=== PATIENT | male | born 1960 | race American Indian/Alaskan Native ===

== ENCOUNTER 2018-10-07 12:05 | Observation (INO) | payer OTHER ==
--- NOTE | 2018-10-07 14:19 | ED PDOC ---
Syncope/Near Syncope/Dizziness Time Seen by Provider: 10/07/18 12:57 Chief Complaint (Nursing): Dizziness/Lightheaded Chief Complaint (Provider): dizziness History Per: Patient History/Exam Limitations: no limitations Onset/Duration Of Symptoms: Days Associated Symptoms Preceding Syncopal Episode: Lightheadedness. denies: Vertigo Possible Causative Factor(s): Lightheaded W/Change In Head Position, Decreased PO Intake. denies: Vertigo, Diurectics, New Medications, Recent Alcohol Fall Associated With With Symptoms: No Additional Complaint(s): 58 y/o M with HIV and hx of DVT in 12/2017 on Eliquis who presents with lightheadedness since yesterday. Began after bending forward but had intermittent episodes throughout the day that he felt were related to not eating. He had recurrent episode today but had not eaten breakfast and felt slightly better but wanted to be evaluated to make sure that nothing was very wr mary. Denies visual disturbance, N/V, diarrhea, C/P, palpitations, SOB, vertigo. Denies change in dizziness with head position. - Risk Factors PE Risk Factors: Pos: Previous DVT Past Medical History Reviewed: Historical Data, Nursing Documentation, Vital Signs Vital Signs: Last Vital Signs Temp 98.1 F 10/07/18 12:15 Pulse 60 10/07/18 12:15 Resp 18 10/07/18 12:15 BP 142/80 10/07/18 12:15 Pulse Ox 99 10/07/18 12:15 - Medical History PMH: Deep Vein Thrombosis, HIV, Pneumonia (remote) Denies: HTN, Chronic Kidney Disease - Family History Family History: States: Unknown Family Hx - Social History Current smoker - smoking cessation education provided: No Ex-Smoker (has not smoked in the last 12 months): No Alcohol: None Drugs: Denies - Immunization History Hx Tetanus Toxoid Vaccination: No Hx Influenza Vaccination: No Hx Pneumococcal Vaccination: No - Home Medications Home Medications: Ambulatory Orders Medication Instructions Recorded Emtricita/rilpivir/tenofovir 1 tab PO DAILY 10/11/14 [Complera 200 mg-25 mg-300 mg] Apixaban [Eliquis] 5 mg PO Q12 10/07/18 - Allergies Allergies/Adverse Reactions: Allergies Allergy/AdvReac Type Severity Reaction Status Date / Time No Known Allergies Allergy Verified 10/07/18 12:15 Review of Systems Constitutional: Negative for: Fever, Chills, Weakness Cardiovascular: Negative for: Chest Pain Respiratory: Negative for: Shortness of Breath Gastrointestinal: Negative for: Nausea, Vomiting, Diarrhea Genitourinary Male: Negative for: Dysuria Neurological: Negative for: Weakness, Incoordination, Confusion, Headache Physical Exam - Reviewed Nursing Documentation Reviewed: Yes Vital Signs Reviewed: Yes - Physical Exam Appears: Positive for: Well Head Exam: Positive for: ATRAUMATIC Skin: Positive for: Normal Color Eye Exam: Positive for: Normal appearance ENT: Positive for: Normal ENT Inspection Neck: Positive for: Normal Cardiovascular/Chest: Positive for: Regular Rate, Rhythm Respiratory: Positive for: Normal Breath Sounds Gastrointestinal/Abdominal: Positive for: Normal Exam Neurologic/Psych: Positive for: Alert, Oriented. Negative for: Motor/Sensory Deficits - Laboratory Results Result Diagrams: 10/07/18 13:50 10/07/18 13:50 - ECG O2 Sat by Pulse Oximetry: 99 Medical Decision Making Medical Decision Making: CBC, CMP Head CT w/o contrast Orthostatics EKG EKG: sinus mercy, HR 40s, no evidence of heart block Orthostatics negative Head CT negative for acute abnormality Telemetry monitoring ordered. 1L Fluid bolus ordered. Admit to Hospitalist Dr. Elder for Observation on telemetry given persistent bradycardia on telemetry. Disposition - Clinical Impression Clinical Impression: Bradycardia, Dizziness - Patient ED Disposition Is Patient to be Admitted: Yes Discussed With DrDianelys: Kylah Elder Doctor Will See Patient In The: ED Counseled Patient/Family Regarding: Studies Performed, Diagnosis, Need For Followup - Disposition Disposition: Transfer of Care Disposition Time: 17:12 Condition: FAIR
[2018-10-07 14:21] LABS: BASO % 1.1 % (0.0-2.0); EOS # 0.1 K/uL (0.0-0.7); EOS % 2.7 % (0.0-4.0); HEMOGLOBIN 15.6 g/dL (12.0-18.0); LYMPH # 1.7 K/uL (1.0-4.3); MEAN CELL VOLUME 89.8 fl (80.0-94.0); MEAN CORPUSCULAR HEMOGLOBIN 29.1 pg (27.0-31.0); MEAN CORPUSCULAR HGB CONC 32.4 g/dL (33.0-37.0); MEAN PLATELET VOLUME 7.9 fl (7.2-11.7); MONO # 0.3 K/uL (0.0-0.8); MONO % 6.3 % (0.0-10.0); NEUT # 2.3 K/uL (1.8-7.0); NEUT % 50.9 % (50.0-75.0); NRBC % 0.2 % (0.0-0.0); RBC 5.35 Mil/uL (4.40-5.90); RED CELL DISTRIBUTION WIDTH 14.4 % (11.5-14.5); WHITE BLOOD COUNT 4.5 K/uL (4.8-10.8)
--- NOTE | 2018-10-07 14:44 | CT ---
Date of service: 10/07/2018 PROCEDURE: CT HEAD WITHOUT CONTRAST. HISTORY: acute dizziness COMPARISON: Not available TECHNIQUE: Axial computed tomography images were obtained through the head/brain without intravenous contrast. Radiation dose: Total exam DLP = 904.88 mGy-cm. This CT exam was performed using one or more of the following dose reduction techniques: Automated exposure control, adjustment of the mA and/or kV according to patient size, and/or use of iterative reconstruction technique. FINDINGS: HEMORRHAGE: No intracranial hemorrhage. BRAIN: No mass effect or edema. No atrophy. Minimal white matter lucency adjacent to the frontal horns of the lateral ventricles consistent with chronic microvascular ischemic change. No evidence of acute infarct. Please note that there is coarse calcification along the anterior aspect of the falx cerebrum which may merely represent calcification though the possibility of meningioma should also be considered. VENTRICLES: Unremarkable. No hydrocephalus. CALVARIUM: Unremarkable. PARANASAL SINUSES: Unremarkable as visualized. No significant inflammatory changes. MASTOID AIR CELLS: Unremarkable as visualized. No inflammatory changes. OTHER FINDINGS: None. IMPRESSION: No intracranial mass, hemorrhage or evidence of acute infarct. Calcification along the anterior falx cerebrum could conceivably represent a meningioma the though this is in no a certain on the basis of this examination. Minimal chronic white matter ischemic change. No additional abnormality.
[2018-10-07 14:45] LABS: BLOOD UREA NITROGEN 16 mg/dl (9-20); GFR NON-AFRICAN AMERICAN > 60
[2018-10-07 14:46] LABS: ALB/GLOB RATIO 1.3 (1.0-2.1); ALBUMIN 4.4 g/dL (3.5-5.0); ALT/SGPT 31 U/L (21-72); AST/SGOT 32 U/L (17-59); CALCIUM 9.4 mg/dL (8.4-10.2)
[2018-10-07 15:32] LABS: INR 1.1; PARTIAL THROMBOPLASTIN TIME 33.6 Seconds (25.6-37.1); PROTHROMBIN TIME 12.9 Seconds (9.8-13.1)
[2018-10-07] MEDS ORDERED: Sodium Chloride 0.9% 1,000 ML IV STA (15:57)
[2018-10-07 18:38] LABS: BARBITURATES, UR NEGATIVE (NEGATIVE); BENZODIAZEPINES, UR NEGATIVE (NEGATIVE); OPIATES, UR NEGATIVE (NEGATIVE); PHENCYCLIDINE, UR NEGATIVE (NEGATIVE)
--- NOTE | 2018-10-07 19:46 | CP.PCM.HP ---
<Sultan Gumaro - Last Filed: 10/07/18 21:36> History of Present Illness - History of Present Illness History of Present Illness: CC: dizziness HPI: 58 year old male PMHx of HIV (CD 4 count 714 on 11/2017), DVT and PE in 04/2018 presents to [facility] ED with complaints of intermittent lightheadedness and dizziness since yesterday. Patient reports intermittent dizziness throughout the day w/o any associated symptoms and attributing it to not eating on time. Reports lightheadedness resolves after eating food. Denies any current dizziness at the time of the exam. Denies any headache, blurry vision, nausea, vomiting, chest pain, dyspnea or LOC. In the ED, patient was found to bradycardic in 40s. Denies any hx cardiac issues in the past. [facility]: Dr. Chatman PMHx: HIV, DVT, and PE PSHx: Right inguinal hernia repair in 2007 Social hx: Drinks wine on weekends. Denies smoking cigarettes or using illicit drugs Family Hx: Mother from tumor of head 2 brothers: from [place] at age 50s Allergies: NKDA Home Medication: Complera 1 tab PO daily, Eliquis 5 mg po bid Present on Admission - Present on Admission Any Indicators Present on Admission: Yes History of DVT/PE: Yes Review of Systems - Review of Systems Review of Systems: All 12 systems reviewed and negative except as mentioned in HPI Past Patient History - Infectious Disease Hx of Infectious Diseases: None - Past Medical History & Family History Past Medical History?: Yes - Past Social History Smoking Status: Former Smoker - CARDIAC Hx Hypertension: No - PULMONARY Hx Pneumonia: Yes (remote) - NEUROLOGICAL Hx Neurological Disorder: No - HEENT Hx HEENT Problems: No - RENAL Hx Chronic Kidney Disease: No - ENDOCRINE/METABOLIC Hx Endocrine Disorders: No - HEMATOLOGICAL/ONCOLOGICAL Hx Human Immunodeficiency Virus (HIV): Yes - INTEGUMENTARY Hx Dermatological Problems: No - MUSCULOSKELETAL/RHEUMATOLOGICAL Hx Musculoskeletal Disorders: No Hx Falls: No - GASTROINTESTINAL Hx Gastrointestinal Disorders: No Hx Diarrhea: Yes (recently) - GENITOURINARY/GYNECOLOGICAL Hx Genitourinary Disorders: No - PSYCHIATRIC Hx Psychophysiologic Disorder: No Hx Substance Use: No - SURGICAL HISTORY Hx Surgeries: No - ANESTHESIA Hx Anesthesia: No Meds Allergies/Adverse Reactions: Allergies Allergy/AdvReac Type Severity Reaction Status Date / Time No Known Allergies Allergy Verified 10/07/18 12:15 Physical Exam - Constitutional Appears: Non-toxic, No Acute Distress - Head Exam Head Exam: ATRAUMATIC, NORMAL INSPECTION, NORMOCEPHALIC - Eye Exam Eye Exam: EOMI, Normal appearance, PERRL - ENT Exam ENT Exam: Mucous Membranes Moist, Normal Oropharynx - Neck Exam Neck exam: Positive for: Full Rom, Normal Inspection. Negative for: Meningismus - Respiratory Exam Respiratory Exam: Clear to Auscultation Bilateral, Rhonchi, Wheezes, NORMAL BREATHING PATTERN - Cardiovascular Exam Cardiovascular Exam: Bradycardia, REGULAR RHYTHM, +S1, +S2 - GI/Abdominal Exam GI & Abdominal Exam: Normal Bowel Sounds, Soft. absent: Tenderness - Extremities Exam Extremities exam: Positive for: normal capillary refill, normal inspection, pedal pulses present. Negative for: calf tenderness - Neurological Exam Neurological exam: Alert, CN II-XII Intact, Oriented x3 - Psychiatric Exam Psychiatric exam: Normal Affect, Normal Mood - Skin Skin Exam: Normal Color, Warm Results - Vital Signs Recent Vital Signs: Last Vital Signs Temp 97.3 F L 10/07/18 18:42 Pulse 44 L 10/07/18 18:42 Resp 18 10/07/18 18:42 BP 155/83 H 10/07/18 18:42 Pulse Ox 98 10/07/18 18:42 - Labs Result Diagrams: 10/07/18 13:50 10/07/18 13:50 Labs: Laboratory Results - last 24 hr 10/07/18 10/07/18 10/07/18 13:50 13:50 15:07 WBC 4.5 L RBC 5.35 Hgb 15.6 Hct 48.1 MCV 89.8 MCH 29.1 MCHC 32.4 L RDW 14.4 Plt Count 232 MPV 7.9 Neut % (Auto) 50.9 Lymph % (Auto) 39.0 Placer % (Auto) 6.3 Eos % (Auto) 2.7 Baso % (Auto) 1.1 Neut # (Auto) 2.3 Lymph # (Auto) 1.7 Placer # (Auto) 0.3 Eos # (Auto) 0.1 Baso # (Auto) 0.0 PT 12.9 INR 1.1 APTT 33.6 Sodium 141 Potassium 4.1 Chloride 104 Carbon Dioxide 26 Anion Gap 15 BUN 16 Creatinine 1.1 Est GFR ( Amer) > 60 Est GFR (Non-Af Amer) > 60 Random Glucose 80 Calcium 9.4 Total Bilirubin 0.6 AST 32 ALT 31 Alkaline Phosphatase 70 Troponin I < 0.0120 Total Protein 7.8 Albumin 4.4 Globulin 3.4 Albumin/Globulin Ratio 1.3 Urine Opiates Screen Urine Methadone Screen Ur Barbiturates Screen Ur Phencyclidine Scrn Ur Amphetamines Screen U Benzodiazepines Scrn U Oth Cocaine Metabols U Cannabinoids Screen 10/07/18 17:50 WBC RBC Hgb Hct MCV MCH MCHC RDW Plt Count MPV Neut % (Auto) Lymph % (Auto) [place] % (Auto) Eos % (Auto) Baso % (Auto) Neut # (Auto) Lymph # (Auto) [place] # (Auto) Eos # (Auto) Baso # (Auto) PT INR APTT Sodium Potassium Chloride Carbon Dioxide Anion Gap BUN Creatinine Est GFR ( Amer) Est GFR (Non-Af Amer) Random Glucose Calcium Total Bilirubin AST ALT Alkaline Phosphatase Troponin I Total Protein Albumin Globulin Albumin/Globulin Ratio Urine Opiates Screen Negative Urine Methadone Screen Negative Ur Barbiturates Screen Negative Ur Phencyclidine Scrn Negative Ur Amphetamines Screen Negative U Benzodiazepines Scrn Negative U Oth Cocaine Metabols Negative U Cannabinoids Screen Negative Assessment & Plan - Assessment and Plan (Free Text) Assessment: 58 year old male PMHx of HIV (CD 4 count 714 on 11/2017), DVT and PE in 04/2018 presents to [facility] ED with complaints of intermittent lightheadedness and dizziness since yesterday. In the ED, patient was found to bradycardic in 40s. Patient is admitted for bradycardia. Plan: Bradycardia with intermittent dizziness -Admit to telemetry -EKG: sinus mercy @44 bmp with 1st degree AV block -Head CT: No intracranial mass, hemorrhage or evidence of acute infarct. Calcification along the anterior falx cerebrum could conceivably represent a meningioma. -UDS neg -F/U AM labs Hx DVT/PE -c/w eliquis 5 mg po bid Hx of HIV not AIDS -patient from [facility] -CD4 714, viral load undetectable on 11/2017 -Continue complera 1 tab daily DVT prophylaxis -on eliquis 5 mg po bid Diet -Heart healthy diet Code Status: -full code Plan d/w with Dr. Jerrod Naik, pgy-2 <Kylah Elder - Last Filed: 10/08/18 18:34> Results - Vital Signs Recent Vital Signs: Last Vital Signs Temp 98 F 10/08/18 12:24 Pulse 70 10/08/18 12:24 Resp 20 10/08/18 12:24 BP 116/72 10/08/18 12:24 Pulse Ox 96 10/08/18 12:24 - Labs Result Diagrams: 10/07/18 13:50 10/07/18 13:50 Labs: Laboratory Results - last 24 hr 10/07/18 10/07/18 10/08/18 17:50 20:56 03:40 Phosphorus Magnesium Troponin I < 0.0120 0.0150 Triglycerides Cholesterol LDL Cholesterol Direct HDL Cholesterol Thyroxine (T4) Free T3 pg/mL TSH 3rd Generation Urine Opiates Screen Negative Urine Methadone Screen Negative Ur Barbiturates Screen Negative Ur Phencyclidine Scrn Negative Ur Amphetamines Screen Negative U Benzodiazepines Scrn Negative U Oth Cocaine Metabols Negative U Cannabinoids Screen Negative 10/08/18 05:00 Phosphorus 4.2 Magnesium 1.9 Troponin I < 0.0120 Triglycerides 66 D Cholesterol 149 LDL Cholesterol Direct 101 HDL Cholesterol 39 Thyroxine (T4) 5.97 Free T3 pg/mL 3.69 TSH 3rd Generation 3.22 Urine Opiates Screen Urine Methadone Screen Ur Barbiturates Screen Ur Phencyclidine Scrn Ur Amphetamines Screen U Benzodiazepines Scrn U Oth Cocaine Metabols U Cannabinoids Screen Attending/Attestation - Attestation I have personally seen and examined this patient.: Yes I have fully participated in the care of the patient.: Yes I have reviewed all pertinent clinical information: Yes Notes (Text): 10/08/18 18:34 agree with findings and plan as above.
[2018-10-07] MEDS: Sodium Chloride 0.9% 1,000 ML IV SCH (21:25)
[2018-10-08 05:32] LABS: HDL CHOLESTEROL 39 MG/DL (30-70)
[2018-10-08 05:40] LABS: LDL CHOLESTEROL 101 mg/dL (0-129)
[2018-10-08 05:41] LABS: T4 5.97 ug/dl (5.5-11.0)
[2018-10-08] MEDS: Sodium Chloride 0.9% 1,000 ML IV SCH (06:00)
[2018-10-08] MEDS ORDERED: Influenza Vaccine (5 YR UP)/PF 60 MCG/0.5 ML SYR IM ONE (06:00)
--- NOTE | 2018-10-08 07:09 | CARD ---
APPROVED REPORT Date of service: 10/07/2018 EKG Measurement Heart [id number] <Conclusion> Marked sinus bradycardia with 1st degree AV block Abnormal ECG
[2018-10-08 08:11] VITALS: RESP 20
[2018-10-08] MEDS ORDERED: Emtricitabine/rilpivirine/tenofovir 1 TAB PO SCH (09:00)
--- NOTE | 2018-10-08 11:18 | CP.PCM.DIS ---
<Gabi Hollis - Last Filed: 10/08/18 11:16> Provider - Provider Date of Admission: 10/07/18 17:12 Attending physician: Kylah Elder DO Time Spent in preparation of Discharge (in minutes): 35 Diagnosis - Discharge Diagnosis (1) Bradycardia Status: Acute Priority: Low (2) Dizziness Status: Resolved Priority: Low (3) HIV (human immunodeficiency virus infection) Status: Chronic Priority: Low Hospital Course - Lab Results Lab Results: Most Recent Lab Values WBC 4.5 K/uL (4.8-10.8) L 10/07/18 13:50 RBC 5.35 Mil/uL (4.40-5.90) 10/07/18 13:50 Hgb 15.6 g/dL (12.0-18.0) 10/07/18 13:50 Hct 48.1 % (35.0-51.0) 10/07/18 13:50 MCV 89.8 fl (80.0-94.0) 10/07/18 13:50 MCH 29.1 pg (27.0-31.0) 10/07/18 13:50 MCHC 32.4 g/dL (33.0-37.0) L 10/07/18 13:50 RDW 14.4 % (11.5-14.5) 10/07/18 13:50 Plt Count 232 K/uL (130-400) 10/07/18 13:50 MPV 7.9 fl (7.2-11.7) 10/07/18 13:50 Neut % (Auto) 50.9 % (50.0-75.0) 10/07/18 13:50 Lymph % (Auto) 39.0 % (20.0-40.0) 10/07/18 13:50 [place] % (Auto) 6.3 % (0.0-10.0) 10/07/18 13:50 Eos % (Auto) 2.7 % (0.0-4.0) 10/07/18 13:50 Baso % (Auto) 1.1 % (0.0-2.0) 10/07/18 13:50 Neut # (Auto) 2.3 K/uL (1.8-7.0) 10/07/18 13:50 Lymph # (Auto) 1.7 K/uL (1.0-4.3) 10/07/18 13:50 [place] # (Auto) 0.3 K/uL (0.0-0.8) 10/07/18 13:50 Eos # (Auto) 0.1 K/uL (0.0-0.7) 10/07/18 13:50 Baso # (Auto) 0.0 K/uL (0.0-0.2) 10/07/18 13:50 PT 12.9 Seconds (9.8-13.1) 10/07/18 15:07 INR 1.1 10/07/18 15:07 APTT 33.6 Seconds (25.6-37.1) 10/07/18 15:07 Sodium 141 mmol/l (132-148) 10/07/18 13:50 Potassium 4.1 MMOL/L (3.6-5.0) 10/07/18 13:50 Chloride 104 mmol/L (98-107) 10/07/18 13:50 Carbon Dioxide 26 mmol/L (22-30) 10/07/18 13:50 Anion Gap 15 (10-20) 10/07/18 13:50 BUN 16 mg/dl (9-20) 10/07/18 13:50 Creatinine 1.1 mg/dl (0.8-1.5) 10/07/18 13:50 Est GFR ( Amer) > 60 10/07/18 13:50 Est GFR (Non-Af Amer) > 60 10/07/18 13:50 Random Glucose 80 mg/dL (75-110) 10/07/18 13:50 Calcium 9.4 mg/dL (8.4-10.2) 10/07/18 13:50 Phosphorus 4.2 mg/dl (2.5-4.5) 10/08/18 05:00 Magnesium 1.9 MG/DL (1.6-2.3) 10/08/18 05:00 Total Bilirubin 0.6 mg/dl (0.2-1.3) 10/07/18 13:50 AST 32 U/L (17-59) 10/07/18 13:50 ALT 31 U/L (21-72) 10/07/18 13:50 Alkaline Phosphatase 70 U/L (38-126) 10/07/18 13:50 Troponin I < 0.0120 ng/mL (0.00-0.120) 10/08/18 05:00 Total Protein 7.8 G/DL (6.3-8.2) 10/07/18 13:50 Albumin 4.4 g/dL (3.5-5.0) 10/07/18 13:50 Globulin 3.4 gm/dL (2.2-3.9) 10/07/18 13:50 Albumin/Globulin Ratio 1.3 (1.0-2.1) 10/07/18 13:50 Triglycerides 66 mg/DL (0-149) D 10/08/18 05:00 Cholesterol 149 mg/dL (0-199) 10/08/18 05:00 LDL Cholesterol Direct 101 mg/dL (0-129) 10/08/18 05:00 HDL Cholesterol 39 MG/DL (30-70) 10/08/18 05:00 Thyroxine (T4) 5.97 ug/dl (5.5-11.0) 10/08/18 05:00 TSH 3rd Generation 3.22 mIU/ML (0.46-4.68) 10/08/18 05:00 Urine Opiates Screen Negative (NEGATIVE) 10/07/18 17:50 Urine Methadone Screen Negative (NEGATIVE) 10/07/18 17:50 Ur Barbiturates Screen Negative (NEGATIVE) 10/07/18 17:50 Ur Phencyclidine Scrn Negative (NEGATIVE) 10/07/18 17:50 Ur Amphetamines Screen Negative (NEGATIVE) 10/07/18 17:50 U Benzodiazepines Scrn Negative (NEGATIVE) 10/07/18 17:50 U Oth Cocaine Metabols Negative (NEGATIVE) 10/07/18 17:50 U Cannabinoids Screen Negative (NEGATIVE) 10/07/18 17:50 - Hospital Course Hospital Course: 58 y/o male w/ hx of HIV and DVT/PE who was admitted for new symptomatic bradycardia. EKG showed Sinus Bradycardia w/ HR in the 40s, and new first degree heart block. He was treated w/ 1L NaCl- bolus. Patient's heart rate in the 60s upon discharge. Patient stable for discharge to home w/ instructions to follow up PMD, Dr. Chatman, within 1 week. He will need outpatient follow up w/ a staff forester. Patient instructed to continue home medications. Discharge Exam - Head Exam Head Exam: ATRAUMATIC - ENT Exam ENT Exam: Mucous Membranes Moist - Respiratory Exam Respiratory Exam: Clear to PA & Lateral, NORMAL BREATHING PATTERN - Cardiovascular Exam Cardiovascular Exam: REGULAR RHYTHM, +S1, +S2. absent: Bradycardia (HR at bedside by this author: 67 ) - GI/Abdominal Exam GI & Abdominal Exam: Normal Bowel Sounds, Soft. absent: Distended - Extremities Exam Additional comments: no calf tenderness or pedal edema - Neurological Exam Neurological exam: Alert, Oriented x3 - Psychiatric Exam Psychiatric exam: Normal Affect - Skin Skin Exam: Dry, Intact, Warm Discharge Plan - Follow Up Plan Condition: FAIR Disposition: HOME/ ROUTINE Patient education suggested?: Yes Instructions: Bradycardia (DC), Syncope (Fainting) (DC) Additional Instructions: Patient instructed to follow up w/ Dr. Eduardo in 1 week. Will need to follow up w/ a staff forester as outpatient. Referrals: García Chatman MD [Family Provider] - <Kylah Elder - Last Filed: 10/08/18 18:33> Provider - Provider Date of Admission: 10/07/18 17:12 Attending physician: Kylah Elder DO Hospital Course - Lab Results Lab Results: Most Recent Lab Values WBC 4.5 K/uL (4.8-10.8) L 10/07/18 13:50 RBC 5.35 Mil/uL (4.40-5.90) 10/07/18 13:50 Hgb 15.6 g/dL (12.0-18.0) 10/07/18 13:50 Hct 48.1 % (35.0-51.0) 10/07/18 13:50 MCV 89.8 fl (80.0-94.0) 10/07/18 13:50 MCH 29.1 pg (27.0-31.0) 10/07/18 13:50 MCHC 32.4 g/dL (33.0-37.0) L 10/07/18 13:50 RDW 14.4 % (11.5-14.5) 10/07/18 13:50 Plt Count 232 K/uL (130-400) 10/07/18 13:50 MPV 7.9 fl (7.2-11.7) 10/07/18 13:50 Neut % (Auto) 50.9 % (50.0-75.0) 10/07/18 13:50 Lymph % (Auto) 39.0 % (20.0-40.0) 10/07/18 13:50 [place] % (Auto) 6.3 % (0.0-10.0) 10/07/18 13:50 Eos % (Auto) 2.7 % (0.0-4.0) 10/07/18 13:50 Baso % (Auto) 1.1 % (0.0-2.0) 10/07/18 13:50 Neut # (Auto) 2.3 K/uL (1.8-7.0) 10/07/18 13:50 Lymph # (Auto) 1.7 K/uL (1.0-4.3) 10/07/18 13:50 [place] # (Auto) 0.3 K/uL (0.0-0.8) 10/07/18 13:50 Eos # (Auto) 0.1 K/uL (0.0-0.7) 10/07/18 13:50 Baso # (Auto) 0.0 K/uL (0.0-0.2) 10/07/18 13:50 PT 12.9 Seconds (9.8-13.1) 10/07/18 15:07 INR 1.1 10/07/18 15:07 APTT 33.6 Seconds (25.6-37.1) 10/07/18 15:07 Sodium 141 mmol/l (132-148) 10/07/18 13:50 Potassium 4.1 MMOL/L (3.6-5.0) 10/07/18 13:50 Chloride 104 mmol/L (98-107) 10/07/18 13:50 Carbon Dioxide 26 mmol/L (22-30) 10/07/18 13:50 Anion Gap 15 (10-20) 10/07/18 13:50 BUN 16 mg/dl (9-20) 10/07/18 13:50 Creatinine 1.1 mg/dl (0.8-1.5) 10/07/18 13:50 Est GFR ( Amer) > 60 10/07/18 13:50 Est GFR (Non-Af Amer) > 60 10/07/18 13:50 Random Glucose 80 mg/dL (75-110) 10/07/18 13:50 Calcium 9.4 mg/dL (8.4-10.2) 10/07/18 13:50 Phosphorus 4.2 mg/dl (2.5-4.5) 10/08/18 05:00 Magnesium 1.9 MG/DL (1.6-2.3) 10/08/18 05:00 Total Bilirubin 0.6 mg/dl (0.2-1.3) 10/07/18 13:50 AST 32 U/L (17-59) 10/07/18 13:50 ALT 31 U/L (21-72) 10/07/18 13:50 Alkaline Phosphatase 70 U/L (38-126) 10/07/18 13:50 Troponin I < 0.0120 ng/mL (0.00-0.120) 10/08/18 05:00 Total Protein 7.8 G/DL (6.3-8.2) 10/07/18 13:50 Albumin 4.4 g/dL (3.5-5.0) 10/07/18 13:50 Globulin 3.4 gm/dL (2.2-3.9) 10/07/18 13:50 Albumin/Globulin Ratio 1.3 (1.0-2.1) 10/07/18 13:50 Triglycerides 66 mg/DL (0-149) D 10/08/18 05:00 Cholesterol 149 mg/dL (0-199) 10/08/18 05:00 LDL Cholesterol Direct 101 mg/dL (0-129) 10/08/18 05:00 HDL Cholesterol 39 MG/DL (30-70) 10/08/18 05:00 Thyroxine (T4) 5.97 ug/dl (5.5-11.0) 10/08/18 05:00 Free T3 pg/mL 3.69 pg/mL (2.77-5.27) 10/08/18 05:00 TSH 3rd Generation 3.22 mIU/ML (0.46-4.68) 10/08/18 05:00 Urine Opiates Screen Negative (NEGATIVE) 10/07/18 17:50 Urine Methadone Screen Negative (NEGATIVE) 10/07/18 17:50 Ur Barbiturates Screen Negative (NEGATIVE) 10/07/18 17:50 Ur Phencyclidine Scrn Negative (NEGATIVE) 10/07/18 17:50 Ur Amphetamines Screen Negative (NEGATIVE) 10/07/18 17:50 U Benzodiazepines Scrn Negative (NEGATIVE) 10/07/18 17:50 U Oth Cocaine Metabols Negative (NEGATIVE) 10/07/18 17:50 U Cannabinoids Screen Negative (NEGATIVE) 10/07/18 17:50 Attending/Attestation - Attestation I have personally seen and examined this patient.: Yes I have fully participated in the care of the patient.: Yes I have reviewed all pertinent clinical information, including history, physical exam and plan: Yes Notes (Text): 10/08/18 18:33 agree with findings and plan as above.
[2018-10-08 12:08] VITALS: BP 116/72; PULSE 70; TEMP 98
[2018-10-08 12:24] VITALS: O2SAT 96
== END 2018-10-08 12:34 | disposition home or self-care (01) ==
LOC: H.ER 12:05 → H.ERHOLD 17:12 → H.TEL 18:33
PROVIDERS: ADMIT Student in an Organized Health Care Education/Training Program; ATTEND Student in an Organized Health Care Education/Training Program
DX: R00.1 Bradycardia, unspecified (principal); Z79.01 Long term (current) use of anticoagulants; Z86.718 Personal history of other venous thrombosis and embolism; Z86.711 Personal history of pulmonary embolism; Z87.891 Personal history of nicotine dependence; Z21 Asymptomatic human immunodeficiency virus [HIV] infection status; I44.0 Atrioventricular block, first degree; R42 Dizziness and giddiness; Z23 Encounter for immunization
CPT/HCPCS: 36415; 70450; 80053; 80061; 80324; 80345; 80346; 80349; 80353; 80358; 80361; 83735; 83992; 84100; 84436; 84443; 84481; 84484; 85025; 85610; 85730; 90471; 93005; 99285; G0008; G0378; J7030; Q2035